=== PATIENT | female | born 1970 | race Caucasian/White ===

== ENCOUNTER 2019-01-11 13:38 | Inpatient (IN) ==
--- NOTE | 2019-01-11 14:20 | PROVIDER DOCUMENTATION ---
HPI-General Adult - General Chief Complaint: Dizziness Stated Complaint: BP HIGH DIZZY Time Seen by Provider: 01/11/19 14:06 Source: patient Allergies/Adverse Reactions: Patient Allergies Allergy/AdvReac Type Severity Reaction Status Date / Time Penicillins AdvReac RASH Verified 01/11/19 13:43 Home Medications: Home Medication List Medication Instructions Recorded Confirmed Last Taken Type NK [No Home Medications] 01/11/19 01/11/19 Unknown History - History of Present Illness -Gen Adult Nature of Presenting Problems: 48yo female presents with CC of weakness, nausea, and dizziness. The onset was this morning. The patient reports she was in her normal state of health yesterday, but this morning noted symptoms of nausea and weakness, and overall not feeling well. She does report a headache, but no abdominal pain of chest pain. The patient has not had a cough or shortness of breath. The patient does report that she did have some elevated blood pressure as well today. The patient does have a recent sick contact in her son, who has active liver failure. The patient believes she may just be having some anxiety about her son. Review of Systems - Adult - REVIEW OF SYSTEMS - ADULT Constitutional: reports: no symptoms reported. denies: fever Eyes: reports: no symptoms reported. denies: eye pain Ears, Nose, Mouth & Throat: denies: throat pain Respiratory: reports: no symptoms reported. denies: cough, shortness of breath Gastrointestinal: reports: nausea, vomiting. denies: abdominal pain, diarrhea Genitourinary: reports: no symptoms reported. denies: dysuria Musculoskeletal: reports: no symptoms reported Integumentary: reports: no symptoms reported Neurological: reports: headache/migraines Psychiatric: reports: anxiety Endocrine: reports: other (diabetes) Hematologic/Lymphatic: reports: no symptoms reported, other (no bleeding) Allergic/Immunologic: reports: no symptoms reported, other (no swelling) Past History - Adult - PAST MEDICAL HISTORY-ADULT Review of Records: reports: Nursing Assessment Review Major Childhood Illnesses: reports: denies history Cardiovascular: reports: denies history Respiratory: reports: denies history Gastrointestinal: reports: denies history Obstetrical/Gynecological: reports: denies history Genitourinary: reports: denies history Musculoskeletal: reports: denies history Neurological: reports: denies history Psychiatric: reports: denies history Endocrine/Immune: reports: denies history, Diabetes Other Conditions: reports: denies history - PRIOR SURGERIES/PROCEDURES Surgical/Procedure History: reports: appendectomy, BTL, , other (uterine ablation) - IMMUNIZATION STATUS Childhood Immunizations: See Nurse Assessment Flu Vaccine: See Nurse Assessment - FAMILY HISTORY Family History: other (CAD) - SOCIAL HISTORY Smoking: denies Substance Use: none/never Alcohol Use Frequency: never Physical Exam-General - PHYSICAL EXAM-ADULT Initial Vital Signs Reviewed: Yes - CONSTITUTIONAL General Appearance: alert, no apparent distress - EYES Eyes: PERRL/EOMI, scleral icterus. negative: conjuctival exudate, photophobia, subconjunctival hemorrhage - HEAD, EARS, NOSE, MOUTH & THROAT HENMT: moist mucous membranes, pharynx normal - RESPIRATORY Respiratory: normal breath sounds - CARDIOVASCULAR Cardiovascular: regular rate, rhythm, no edema - GASTROINTESTINAL (ABDOMEN) Abdominal Exam: soft, tenderness, McBurney's point tenderness. 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 negative: facial droop, focal weakness, motor weakness, sensory deficit - PSYCHIATRIC Psych/Mental Status: normal thought content, normal thought process, anxious, tearful Progress - PLAN OF CARE/RESULTS Progress/Plan/Lab Results: Vital Signs - 8 hr 01/11/19 13:39 Temperature 98.4 F Pulse Rate 97 H Respiratory Rate 18 Blood Pressure 141/88 O2 Sat by Pulse Oximetry 99 Result Diagrams: 01/11/19 14:53 01/11/19 14:53 - REASSESSMENT Reassessment #1 Status: improving (Patient resting comfortably in bed. Lab results concerning for acute hepatitis. Disucussed results with the GI team who recomended admission for supportive care. Tylenol level was checked and was negative. Admission was discussed with the patient who was agreeable to this. Discussed with hospitalist who has accepted the pateint.) Departure - Departure Date of Disposition Decision: 01/11/19 Time of Disposition Decision: 19:09 DIAGNOSIS: Acute hepatitis Disposition: ADMITTED INPATIENT 09 Certified Medical Emergency: Emergent Condition: Fair Referrals and Follow-Ups: None,PCP [Primary Care Provider] - - Critical Care Note This patient required my direct & personal management of CC.: No Attestation - Physician/ VANIA Attestation Patient care was provided by Advanced Practice Provider:: No The physician spent face to face time with patient:: Yes Advanced Practice Provider documentation review:: Supervising physician onsite and consulted in the evaluation and care of this patient. The physician did have a face to face encounter with the patient.
[2019-01-11] MEDS ORDERED: ZOFRAN IV ONE (14:22)
[2019-01-11] MEDS ORDERED: NS 1,000 ML IV ONE (14:22)
[2019-01-11] MEDS ORDERED: TORADOL IV ONE (14:22)
[2019-01-11] MEDS ORDERED: ATARAX PO ONE (14:22)
[2019-01-11 15:15] LABS: BASO# 0.09 X1000 (0.0-0.2); BASO% 1.2 % (0.0-0.8); EOS# 0.17 X1000 (0.0-0.7); EOS% 2.2 % (0.0-10.0); HEMATOCRIT 45.5 % (37.0-47.0); HEMOGLOBIN 14.8 g/dL (12.0-16.0); LYMPH# 2.92 X1000 (1.2-3.4); LYMPH% 37.8 % (20.5-51.1); MCH 26.9 PG (27-31); MCHC 32.5 g/dL (33-37); MCV 82.7 FL (81-99); MONO# 1.05 X1000 (0.11-0.59); MONO% 13.6 % (1.7-9.3); MPV 10.4 FL (7.4-10.4); NEUT% 45.2 % (42.2-75.2); PLT 287 X1000 (130-400); RDW 15.9 % (11.5-14.5); WBC 7.73 X1000 (4.8-10.8)
[2019-01-11 16:03] LABS: AGAP 10; ALB/GLOB RATIO 0.9; ALBUMIN 3.6 g/dL (3.5-5.0); ALKALINE PHOSPHATASE 241 U/L (32-104); AMYLASE 58 U/L (20-200); BUN 7 mg/dL (8-22); CALCIUM 8.7 mg/dL (8.8-10.2); CHLORIDE 96 mmol/L (98-107); COSMO 271; CREATININE 0.7 mg/dL (0.5-0.9); ESTIMATED GFR > 60; GLUCOSE 178 mg/dL (70-104); LIPASE 78 U/L (13-60); POTASSIUM 4.3 mmol/L (3.5-5.1); SODIUM 134 mmol/L (136-145); TCO2 28 mmol/L (25-35); TOTAL BILIRUBIN 5.74 mg/dL (0.20-1.00); TOTAL PROTEIN 7.5 g/dL (6.3-8.3)
[2019-01-11 16:14] LABS: GOT 892 U/L (10-30); GPT 3094 U/L (10-36)
[2019-01-11 16:25] LABS: SED RATE 29 mm/hr (0-20)
[2019-01-11 17:03] LABS: ACETAMINOPHEN < 1.2 ug/mL (10-30); SALICYLATES < 3.00 mg/dL (3-10)
[2019-01-11 18:21] LABS: INR 1.06; PROTIME 13.9 Seconds (11.0-16.0)
[2019-01-11 18:37] LABS: URINE SOURCE CLEAN CATCH
[2019-01-11] MEDS ORDERED: SODIUM CHLORIDE 0.9% INJ SCH (18:47)
[2019-01-11] MEDS ORDERED: ZOFRAN IV PRN (18:47)
[2019-01-11 19:00] LABS: BILIRUBIN URINE MODERATE (NEGATIVE); BLOOD URINE NEGATIVE (NEGATIVE); COLOR YELLOW; GLUCOSE URINE NEGATIVE (NEGATIVE); KETONE URINE NEGATIVE (NEGATIVE); LEUKOCYTES URINE LARGE (NEGATIVE); NITRITE URINE NEGATIVE (NEGATIVE); PROTEIN URINE TRACE mg/dL (NEGATIVE); SP GRAVITY URINE 1.012; TURBIDITY URINE HAZY (CLEAR); UROBILINOGEN URINE NORMAL (NORMAL)
[2019-01-11 19:09] LABS: UR EPITHELIAL CELLS <10 /HPF (<10); URINE BACTERIA 4+ /HPF; URINE RBC <10 /HPF (<10); URINE WBC TNTC /HPF (<10)
[2019-01-11 19:17] LABS: URINE CASTS NONE SEEN; URINE CRYSTALS NONE SEEN; URINE YEAST NONE SEEN
--- NOTE | 2019-01-11 19:21 | HISTORY AND PHYSICAL ---
PRIMARY CARE PHYSICIAN: None. HISTORY OF PRESENT ILLNESS: This is a 48-year-old female with a past medical history of diabetes, who presented to the emergency department complaining of weakness, nausea and vomiting and feeling dizzy since today. She reports that her son is admitted to the hospital for hepatitis. She denies any runny nose, or sneezing or any flu-like symptoms. Here upon ER evaluation, she was found out to have a very elevated liver function test with AST is 892 with 3000 ALT. INR is normal. So she is going to be admitted for abdominal pain, with hepatitis. She is going to be admitted for further evaluation and treatment. PAST MEDICAL HISTORY: 1. Diabetes. 2. Osteoarthritis. PAST SURGICAL HISTORY: 1. Appendectomy. 2. Endometrial ablation when she was 24. ALLERGIES: The patient is allergic to penicillin. SOCIAL HISTORY: The patient denies any smoking cigarettes and drinks alcohol occasionally, but she reports to use IV drugs, in this case, IV methamphetamines and she quit 8 to 9 months ago. REVIEW OF SYSTEMS: Eleven systems were reviewed and all symptoms are related to the H P. PHYSICAL EXAMINATION: VITAL SIGNS: Temperature 98.4 degrees, heart rate 97, respiratory 18, blood pressure 141/88, O2 saturation 99% on room air. GENERAL: This is a 48-year-old female lying in bed, in no acute distress. HEENT: Head is normocephalic, atraumatic. Pupils are equal, round, and reactive to light and accommodation. Very icteric sclera. Conjunctivae is pale. Mucous membranes are dry. NECK: No JVD noted. No carotid bruits. No lymphadenopathy. No thyromegaly. CARDIOVASCULAR: S1, S2 heard. No murmurs, gallops, or rubs. Regular rate and rhythm. RESPIRATORY: Clear bilaterally to auscultation. No work of breathing or using accessory muscles. ABDOMEN: Soft. Mild tender to palpation in the right upper quadrant. No organomegaly noted. No signs of peritoneal irritation. EXTREMITIES: No clubbing, cyanosis, or edema. Peripheral pulses present in both legs. NEUROLOGICAL: The patient is alert and oriented x3. Moves 4 extremities. LABORATORY DATA: CMP that showed total bilirubin 5.74 with AST 892, ALT 3094 with alkaline phosphatase 241. Lipase is 78, salicylate and acetaminophen checked and is normal. ASSESSMENT AND PLAN: 1. Acute hepatitis. The patient is a former IV drug abuser. Although, she said that she quit using IV drugs 8 to 9 months ago. We are going to check a hepatitis profile. In the meantime, we will provide IV fluids and pain medications as needed. We will provide also medication for nausea. Regarding diabetes, we will check hemoglobin A1c. We will start sliding scale insulin, Humalog. Because of her history IV drug abuse, we will check also human immunodeficiency virus as well. 2. For this abdominal pain, we are going to check also CT of abdomen and pelvis with and without contrast and an abdominal ultrasound as well. 3. Further recommendations to follow according to the clinical situation of the patient. cc: Wilmer Gr MD
[2019-01-11 19:24] LABS: HEMOGLOBIN A1C 6.9 % (4.8-6.0)
--- NOTE | 2019-01-11 19:54 | Diag Imaging Result Doc PS360 ---
EXAM: CT ABDOMEN/PELVIS W/WO ANTONIA 01/11/2019 HISTORY: abdominal pain TECHNIQUE: This exam was performed using automated exposure control, adjustment of mA or kV according to patient size, and/or use of iterative reconstruction technique. COMMENT: There is dependent atelectasis in both posterior costophrenic sulci. This is actually improved since 07/10/2017. There is no evidence of hydronephrosis or nephrolithiasis. There is some apparent thickening of the gallbladder wall of the gallbladder is not distended. There are tiny densely calcified gallstones. There is some mild periportal edema. This is worse than on the previous study. There is periportal adenopathy which was not the case on the previous study. The possibility of hepatitis cannot be excluded. The spleen is not enlarged. The adrenal glands are not enlarged and the pancreas is unremarkable in appearance. There is some patchy areas of decreased contrast enhancement present in the left kidney particularly in the lower pole and upper pole consistent with pyelonephritis. This appearance was not present at the time the previous study. Pelvis: There has been previous appendectomy. There is diverticulosis in the distal descending colon and sigmoid without evidence of acute diverticulitis. There is no free fluid. There are no masses. There is gas in the urinary bladder. The regional skeleton appears to be intact. IMPRESSION: 1. Cholelithiasis and pericholecystic fluid/wall edema. The possibility of cholecystitis cannot be excluded. 2. Periportal edema and adenopathy. The possibility of hepatitis cannot be excluded. 3. Urinary tract infection with left pyelonephritis. Electronically signed by Dustin Sultana 01/11/2019 7:51 PM
[2019-01-11] MEDS: PROTONIX IV SCH (21:00)
[2019-01-12] MEDS: HUMALOG SUBQ SCH ×5 (00:21→21:15)
[2019-01-12] MEDS: NS 1,000 ML IV SCH ×4 (03:46→18:58)
[2019-01-12 07:27] LABS: INR 1.14; PROTIME 14.8 Seconds (11.0-16.0)
[2019-01-12 07:37] LABS: BASO# 0.09 X1000 (0.0-0.2); BASO% 1.1 % (0.0-0.8); EOS# 0.15 X1000 (0.0-0.7); EOS% 1.9 % (0.0-10.0); HEMOGLOBIN 13.2 g/dL (12.0-16.0); IMM GRAN# 0.02 X1000 (0.0-0.04); IMM GRAN% 0.3 % (0.0-0.5); LYMPH# 3.69 X1000 (1.2-3.4); LYMPH% 46.4 % (20.5-51.1); MCH 27.2 PG (27-31); MCV 82.3 FL (81-99); MONO# 0.79 X1000 (0.11-0.59); MONO% 9.9 % (1.7-9.3); MPV 10.6 FL (7.4-10.4); NEUT# 3.21 X1000 (1.4-6.5); NEUT% 40.4 % (42.2-75.2); PLT 278 X1000 (130-400); RBC 4.86 XMIL (4.2-5.4); RDW 16.2 % (11.5-14.5); WBC 7.95 X1000 (4.8-10.8)
[2019-01-12 07:44] LABS: BANDS 2 % (0-1); EOS 2 % (1-10); LYMPHS 32 % (21-51); SEGS 58 % (42-75)
[2019-01-12 08:02] LABS: AGAP 12; ALB/GLOB RATIO 0.8; ALBUMIN 2.9 g/dL (3.5-5.0); ALKALINE PHOSPHATASE 205 U/L (32-104); BUN 7 mg/dL (8-22); CALCIUM 8.5 mg/dL (8.8-10.2); CHLORIDE 101 mmol/L (98-107); COSMO 273; CREATININE 0.7 mg/dL (0.5-0.9); ESTIMATED GFR > 60; GLUCOSE 128 mg/dL (70-104); GOT 527 U/L (10-30); SODIUM 137 mmol/L (136-145); TCO2 24 mmol/L (25-35); TOTAL BILIRUBIN 5.69 mg/dL (0.20-1.00); TOTAL PROTEIN 6.6 g/dL (6.3-8.3)
[2019-01-12 08:15] LABS: GPT 2110 U/L (10-36)
[2019-01-12 09:00] LABS: UR AMPHETAMINES QUAL PRESUMPTIVE POSITIVE (NONE DETECT); UR BARBITUATES QUAL NONE DETECTED (NONE DETECT); UR BENZODIAZEPIN QUAL NONE DETECTED (NONE DETECT); UR CANNABINOIDS QUAL NONE DETECTED (NONE DETECT); UR COCAINE QUAL NONE DETECTED (NONE DETECT); UR METHADONE QUAL NONE DETECTED (NONE DETECT); UR OPIATES QUAL NONE DETECTED (NONE DETECT); UR OXYCODONE QUAL NONE DETECTED (NONE DETECT); UR PCP QUAL NONE DETECTED (NONE DETECT)
[2019-01-12] MEDS: TORADOL IV PRN ×2 (10:37→19:57)
[2019-01-12] MEDS: LEVAQUIN 750 MG/D5W 750 MG/150 ML IVPB IV SCH (10:38)
--- NOTE | 2019-01-12 13:35 | PROGRESS NOTE ---
DATE: 01/12/2019 SUBJECTIVE: Patient reports feeling less nauseated, although still abdominal pain, so we are going to change her diet to clear liquids. No other complaints noted. OBJECTIVE: Vital Signs: Temperature 98.2 degrees, heart rate 82, respiratory rate 16, blood pressure 130/80, O2 saturation 100% on room air. General Examination: This is a 48-year-old female lying in bed, in no acute distress. Cardiovascular: S1 and S2 heard. No murmurs, gallops, or rubs. Regular rate and rhythm. Respiratory: Clear bilaterally to auscultation. No work of breathing or using accessory muscles. Abdomen: Soft. Right upper quadrant tenderness to palpation. Bowel sounds present. No organomegaly. No signs of peritoneal irritation. Neurological: Patient alert and oriented x3. Moves 4 extremities. LABORATORY DATA: Reviewed. ASSESSMENT AND PLAN: 1. Acute hepatitis. Final hepatitis profile report is still pending. The patient has history of son who is in the hospital with hepatitis A. Because of her abdominal pain, we have ordered an abdominal ultrasound which basically showed cholelithiasis with pericolic fluid. It showed also urinary tract infection with left pyelonephritis. At this point, patient is going to be started on Levaquin. We have ordered abdominal ultrasound. We will see how this patient does. Urine culture and blood cultures are still pending. 2. Urinary tract infection. We will continue with Levaquin. 3. Further recommendations to follow according to the clinical situation of the patient. cc: Wilmer Gr MD MTDD
--- NOTE | 2019-01-12 14:08 | Diag Imaging Result Doc PS360 ---
US ABDOMEN-COMPLETE - 01/12/2019 INDICATION: acute hepatitis, COMPARISON: CT from 01/11/2019 FINDINGS: The gallbladder is somewhat collapsed. There is some gallbladder wall thickening which was present on the prior CT. There are perhaps a couple of tiny stones in the gallbladder. No shadowing gallstones. No gallbladder distention or surrounding free fluid. Common bile duct measures 2 mm. The pancreas is obscured by bowel gas. The spleen measures 12.3 x 5.6 cm. The liver and both kidneys are normal. Aorta, IVC, and main portal vein are patent. IMPRESSION: 1. Nonspecific collapsed gallbladder with gallbladder wall thickening. 2. Perhaps a couple tiny nonshadowing stones in the gallbladder. Electronically signed by Pedro Luis Denise 01/12/2019 2:05 PM
[2019-01-12 14:23] LABS: HEPATITIS PROFILE ACUTE SEE COMMENTS
[2019-01-12] MEDS: PROTONIX IV SCH ×2 (19:51→20:28)
[2019-01-12 20:56] LABS: HIV ANTIBODY SCREEN SEE COMMENTS
[2019-01-13] MEDS: HUMALOG SUBQ SCH ×4 (06:04→23:39)
[2019-01-13] MEDS: NS 1,000 ML IV SCH ×3 (06:31→23:39)
[2019-01-13 07:09] LABS: INR 1.14; PROTIME 14.8 Seconds (11.0-16.0)
[2019-01-13 07:11] LABS: BASO# 0.06 X1000 (0.0-0.2); BASO% 0.9 % (0.0-0.8); EOS# 0.09 X1000 (0.0-0.7); EOS% 1.4 % (0.0-10.0); HEMATOCRIT 38.9 % (37.0-47.0); HEMOGLOBIN 12.8 g/dL (12.0-16.0); LYMPH# 2.98 X1000 (1.2-3.4); LYMPH% 45.8 % (20.5-51.1); MCH 27.2 PG (27-31); MCHC 32.9 g/dL (33-37); MCV 82.8 FL (81-99); MONO# 0.68 X1000 (0.11-0.59); MONO% 10.4 % (1.7-9.3); MPV 10.1 FL (7.4-10.4); NEUT% 41.5 % (42.2-75.2); PLT 287 X1000 (130-400); RDW 16.6 % (11.5-14.5); WBC 6.51 X1000 (4.8-10.8)
[2019-01-13 07:35] LABS: AGAP 7; ALB/GLOB RATIO 0.8; ALKALINE PHOSPHATASE 206 U/L (32-104); BUN 6 mg/dL (8-22); CALCIUM 8.4 mg/dL (8.8-10.2); CHLORIDE 101 mmol/L (98-107); COSMO 274; CREATININE 0.7 mg/dL (0.5-0.9); ESTIMATED GFR > 60; GLUCOSE 210 mg/dL (70-104); GOT 342 U/L (10-30); POTASSIUM 3.9 mmol/L (3.5-5.1); SODIUM 135 mmol/L (136-145); TCO2 27 mmol/L (25-35); TOTAL BILIRUBIN 6.19 mg/dL (0.20-1.00); TOTAL PROTEIN 6.6 g/dL (6.3-8.3)
[2019-01-13 07:54] LABS: GPT 1429 U/L (10-36)
[2019-01-13 08:06] LABS: LYMPHS 44 % (21-51); MONO 6 % (1-9); SEGS 42 % (42-75)
[2019-01-13] MEDS: LEVAQUIN 750 MG/D5W 750 MG/150 ML IVPB IV SCH ×2 (08:46→09:30)
[2019-01-13] MEDS: TORADOL IV PRN ×2 (11:25→20:51)
--- NOTE | 2019-01-13 14:58 | PROGRESS NOTE ---
DATE: 01/13/2019 SUBJECTIVE: Patient reports feeling definitely less nauseated and he actually wants to try something more consistent than clear liquid diet. Abdominal pain she reported almost gone. OBJECTIVE: Vital Signs: Temperature 97.6 degrees, heart rate 77, respiratory 17, blood pressure 122/74, O2 saturation 99% on room air. General Examination: This is a 48-year-old female lying in bed, in no acute distress. Cardiovascular: S1, S2 heard. No murmurs, gallops, or rubs. Regular rate and rhythm. Respiratory: Clear bilaterally to auscultation. No work of breathing or using accessory muscles. Abdomen: Soft. Mild right upper quadrant tenderness to palpation but definitely better in comparing with yesterday. Bowel sounds present. No organomegaly. No signs of peritoneal irritation. Neurological: Patient alert and oriented x3. Moves 4 extremities. LABORATORY DATA: Reviewed. ASSESSMENT AND PLAN: 1. Acute hepatitis A. That is what the hepatitis profile reports. Clinically, she reports feeling definitely not nauseated so she wants to have her diet advanced. We will do that. There was cholelithiasis showing in the CT scan of the abdomen but the abdominal ultrasound did not show any signs of cholecystitis. White cell count is normal so at this point, we will continue with the same management. 2. Urinary tract infection. We will continue with Levaquin. The urine culture showed gram- negative rods but the final sensitivity is not back yet. We will continue to monitor. 3. Disposition: I think this patient continues to improve with less nausea, eating okay actually. I think we will discharge her tomorrow. cc: Wilmer Gr MD
[2019-01-13] MEDS: PROTONIX IV SCH (20:51)
[2019-01-14] MEDS: HUMALOG SUBQ SCH ×4 (06:31→20:36)
[2019-01-14] MEDS: NS 1,000 ML IV SCH ×3 (06:37→22:00)
[2019-01-14 07:29] LABS: INR 1.12; PROTIME 14.5 Seconds (11.0-16.0)
[2019-01-14 07:37] LABS: BASO# 0.05 X1000 (0.0-0.2); BASO% 0.7 % (0.0-0.8); EOS# 0.16 X1000 (0.0-0.7); EOS% 2.1 % (0.0-10.0); HEMATOCRIT 39.5 % (37.0-47.0); HEMOGLOBIN 13.1 g/dL (12.0-16.0); IMM GRAN# 0.03 X1000 (0.0-0.04); IMM GRAN% 0.4 % (0.0-0.5); LYMPH# 3.07 X1000 (1.2-3.4); LYMPH% 41.1 % (20.5-51.1); MCH 27.3 PG (27-31); MCHC 33.2 g/dL (33-37); MCV 82.5 FL (81-99); MONO# 0.86 X1000 (0.11-0.59); MONO% 11.5 % (1.7-9.3); MPV 10.5 FL (7.4-10.4); NEUT% 44.2 % (42.2-75.2); PLT 292 X1000 (130-400); RBC 4.79 XMIL (4.2-5.4); RDW 17.1 % (11.5-14.5); WBC 7.47 X1000 (4.8-10.8)
[2019-01-14 07:54] LABS: EOS 2 % (1-10); LYMPHS 40 % (21-51); MONO 8 % (1-9); SEGS 42 % (42-75)
[2019-01-14 08:37] LABS: AGAP 11; ALB/GLOB RATIO 0.8; ALBUMIN 2.9 g/dL (3.5-5.0); ALKALINE PHOSPHATASE 237 U/L (32-104); BUN 5 mg/dL (8-22); CALCIUM 9.3 mg/dL (8.8-10.2); CHLORIDE 100 mmol/L (98-107); COSMO 270; CREATININE 0.6 mg/dL (0.5-0.9); ESTIMATED GFR > 60; GLUCOSE 145 mg/dL (70-104); GOT 279 U/L (10-30); GPT 1130 U/L (10-36); POTASSIUM 3.8 mmol/L (3.5-5.1); SODIUM 135 mmol/L (136-145); TCO2 24 mmol/L (25-35); TOTAL BILIRUBIN 6.35 mg/dL (0.20-1.00); TOTAL PROTEIN 6.5 g/dL (6.3-8.3)
--- NOTE | 2019-01-14 09:36 | PROGRESS NOTE ---
DATE: 01/14/2019 SUBJECTIVE: The patient reports feeling fine, not nauseated. She is eating okay. OBJECTIVE: Vital Signs: Temperature 98.5, heart rate 89, respiratory rate 19, blood pressure 130/75, O2 saturation 99% on room air. General: This is a 48-year-old female, lying in bed in no acute distress. Cardiovascular: S1, S2 heard. No murmurs, gallops, or rubs. Regular rate and rhythm. Respiratory: Clear bilaterally to auscultation. No work of breathing or using accessory muscles. Abdomen: Soft, nontender to palpation. Bowel sounds present. No organomegaly. Extremities: No clubbing, cyanosis, or edema. Peripheral pulses present in both legs. Neurological: The patient is alert and oriented x3. Moves all 4 extremities. LABORATORY DATA: Reviewed. Urine culture showed ESBL-positive Escherichia coli. ASSESSMENT AND PLAN: 1. Acute hepatitis A. Clinically, this patient is improving, eating a gastrointestinal soft diet, so will advance her diet to regular. No abdominal pain, so from that standpoint, the patient can be discharged. 2. Extended spectrum [id number]-uxitnfcq Escherichia coli urinary tract infection. That is what we found out on the urine culture, so the patient will be started on ertapenem, and will consult Dr. Damian Hastings. 3. Disposition. At this point, the patient is clinically much better from hepatitis. Liver function tests continue to improve. At this point, I think we will see what Dr. Hastings from Infectious Disease has to say regarding this urinary tract infection. cc: Wilmer Gr MD
[2019-01-14] MEDS: INVANZ 1 GM/NS 1 GM/50 ML IVPB IV SCH (10:34)
--- NOTE | 2019-01-14 11:17 | INFECTIOUS DISEASE CONSULT REP ---
DATE: 01/14/2019 CONCLUSION: Patient has a symptomatic extended spectrum beta lactamase producing E coli urinary tract infection. RECOMMENDATIONS: I agree with placing the patient on ertapenem in a dose of 1 g IV daily. Some of the side effects of the antibiotic, including rash, diarrhea and seizures have been explained to the patient who agrees with treatment. My plan is to treat the patient for 14 days with ertapenem. I am going to put in a consult for the patient to have a PICC placed tomorrow and also a consult for social service to get the patient set up with home IV antibiotics. I discussed with the patient about her PICC the I told her that she can't push, pull or lift anything more than 5 pounds with the arm that has the PICC in it. Also, I told her she cannot work in any hot place that she must be in a cool place so she does not sweat because if she did sweat it could cause the dressing on the PICC to become moist and possibly then become infected. I will have the patient come back to see to my office in approximately 2 weeks and repeat the urine culture a week after stopping the antibiotic. Since the patient's CT scan showed possible cholecystitis as well as pyelonephritis I ordered a HIDA scan for tomorrow. DISCUSSION: The patient approximately 3 days ago prior to coming in the hospital, started having fever and chills and lower abdominal pain. She also noted that her urine was dark. Laboratory studies show a creatinine of 0.6, a GFR of greater than 60. The patient's CBC shows a white count of 7470, hemoglobin 13.1, and platelet count 292,000. The patient's hepatitis profile was positive for hepatitis IgM antibody. The patient's liver function tests showed an ALT of 1130, an alkaline phosphatase of 237. The patient's urinalysis showed bacteria and white cells. Culture of the urine grew an extended spectrum beta lactamase producing E coli patient's urinary test was negative. Drug screen was positive for amphetamines. The patient's HIV antibodies were nonreactive. Blood cultures and swab of the nose for influenza are negative. The patient's urine culture grew an extended spectrum beta lactamase producing E coli. CT scan showed left pyelonephritis and possible cholecystitis. PAST MEDICAL HISTORY/REVIEW OF SYSTEMS: Eyes and ears she can hear and see well. Neck no stiffness. Respiratory no cough or shortness of breath. Cardiac no chest pain or palpitations. GI no nausea, vomiting, or diarrhea. see present illness. Bones, joints, muscles: No swollen joints or muscle aching. Neurologic no seizures. No loss of motor or sensory function. Integument no rash. 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 She has had an endometrial ablation and as mentioned above her urinary test was negative. PREVIOUS HOSPITALIZATIONS AND OPERATIONS: Patient has had 3 labor and deliveries, and an endometrial ablation and an appendectomy. MEDICAL DISEASES: Positive for obesity, diabetes mellitus and hypertension. INFECTIOUS DISEASE HISTORY: Positive for pneumonia and UTI. The patient also has recently been diagnosed with hepatitis. FAMILY HISTORY: Positive for diabetes mellitus, hypertension, myocardial infarction, and stroke. SOCIAL HISTORY[place] . She lives alone. She does not have any pets at home. 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 She does not smoke, drink, or abuse drugs. HOME MEDICATIONS: There are no home medications. As mentioned earlier, the patient said she does not do any in the do any illicit drugs, but her drug screen was positive for amphetamines. PHYSICAL EXAMINATION: Vital Signs: Temperature is 98.5 degrees, pulse 89, respirations 18, blood pressure 130/75. General: Patient is 5 feet 4 inches tall, weighs 178 pounds. Generally: This is an ill-appearing, middle-aged female. She was not jaundice. She was in no acute distress. Head/eyes/ears/nose/throat: She can hear my spoken words and see near objects. There was no scleral icterus. I did not see any white patches in her mouth. Neck: No meningismus. Lungs: Clear to auscultation. Cardiovascular: Regular heart rate. Abdomen: The patient was tender in the lower abdomen area. Neurologic: Patient is alert she can move her extremities. She is able to ambulate. There is no tremor. Integument: No rash. Thank you for the consult. cc: Damian Hastings MD [facility]
[2019-01-14] MEDS: TORADOL IV PRN ×2 (15:54→21:54)
[2019-01-14] MEDS: PROTONIX IV SCH (20:35)
[2019-01-15] MEDS: TORADOL IV PRN (05:25)
[2019-01-15] MEDS: NS 1,000 ML IV SCH (06:27)
[2019-01-15] MEDS: HUMALOG SUBQ SCH ×2 (06:28→11:08)
[2019-01-15 07:53] LABS: INR 1.09; PROTIME 14.2 Seconds (11.0-16.0)
[2019-01-15 07:57] LABS: BASO# 0.07 X1000 (0.0-0.2); EOS# 0.16 X1000 (0.0-0.7); EOS% 2.2 % (0.0-10.0); HEMATOCRIT 38.2 % (37.0-47.0); HEMOGLOBIN 12.7 g/dL (12.0-16.0); LYMPH# 2.65 X1000 (1.2-3.4); LYMPH% 36.7 % (20.5-51.1); MCH 27.1 PG (27-31); MCHC 33.2 g/dL (33-37); MCV 81.4 FL (81-99); MONO# 0.55 X1000 (0.11-0.59); MONO% 7.6 % (1.7-9.3); MPV 9.8 FL (7.4-10.4); NEUT% 52.5 % (42.2-75.2); PLT 302 X1000 (130-400); RBC 4.69 XMIL (4.2-5.4); RDW 17.2 % (11.5-14.5); WBC 7.23 X1000 (4.8-10.8)
[2019-01-15 08:16] LABS: EOS 2 % (1-10); LYMPHS 28 % (21-51); MONO 2 % (1-9); SEGS 68 % (42-75)
[2019-01-15 08:30] LABS: AGAP 10; ALB/GLOB RATIO 0.7; ALBUMIN 2.9 g/dL (3.5-5.0); ALKALINE PHOSPHATASE 277 U/L (32-104); BUN 6 mg/dL (8-22); CALCIUM 8.6 mg/dL (8.8-10.2); CHLORIDE 100 mmol/L (98-107); COSMO 272; CREATININE 0.7 mg/dL (0.5-0.9); ESTIMATED GFR > 60; GLUCOSE 175 mg/dL (70-104); GOT 188 U/L (10-30); POTASSIUM 3.7 mmol/L (3.5-5.1); SODIUM 135 mmol/L (136-145); TCO2 25 mmol/L (25-35); TOTAL BILIRUBIN 6.78 mg/dL (0.20-1.00); TOTAL PROTEIN 6.8 g/dL (6.3-8.3)
[2019-01-15 08:52] LABS: GPT 808 U/L (10-36)
[2019-01-15] MEDS: INVANZ 1 GM/NS 1 GM/50 ML IVPB IV SCH (09:19)
[2019-01-15] MEDS ORDERED: NS 250 ML ONE (10:42)
[2019-01-15 10:56] VITALS: BP 129/76
[2019-01-15] MEDS ORDERED: ZOFRAN PO PRN (12:13)
[2019-01-16] MEDS ORDERED: PROTONIX PO SCH (07:00)
--- NOTE | 2019-01-16 07:39 | DISCHARGE SUMMARY ---
ADMISSION DATE: 01/11/2019 DISCHARGE DATE: 01/15/2019 DISCHARGE DIAGNOSES: 1. Acute hepatitis A. 2. Extended spectrum beta-lactamase Escherichia coli urinary tract infection. 3. Diabetes mellitus type 2. 4. Intravenous drug abuse with methamphetamine. 5. Osteoarthritis. CONSULTATIONS: Dr. Damian Hastings from Infectious Disease. PROCEDURES: 1. Abdominopelvic CT showed cholelithiasis and pericholecystic fluid, wall edema, periportal edema, and adenopathy. 2. Abdominal ultrasound showed nonspecific collapse of the gallbladder with gallbladder wall thickening. HOSPITAL COURSE: This is a 48-year-old female with past medical history of diabetes, who presented to the emergency department complaining of nausea, vomiting, and also she reported that she had a sick contact with her son, also recently diagnosed with hepatitis A. She was admitted to the hospital because her liver function test shows transaminase in the range of thousands. She was admitted to the hospital with IV fluids and pain medication. Two days after she was admitted, she was feeling okay. She started eating okay. Her urine culture shows ESBL Escherichia coli, so we consulted Dr. Hastings from Infectious Disease, who set up 2 weeks of IV antibiotics with ertapenem, and she is going to be seen in the office after she finishes treatment. DISCHARGE PHYSICAL EXAMINATION: Vital Signs: Temperature 97.8 degrees, heart rate 74, respiratory rate 14, blood pressure 131/81, O2 saturation 98% on room air. General: This is a 48- year-old female, lying in bed in no acute distress. Cardiovascular: S1, S2 heard. No murmurs, gallops, or rubs. Regular rate and rhythm. Respiratory: Clear bilaterally to auscultation. No work of breathing or using accessory muscles. Abdomen: Soft, nontender to palpation. Bowel sounds present. No organomegaly. Extremities: No clubbing, cyanosis, or edema. Peripheral pulses present in both legs. Neurological: The patient is alert and oriented x3. Moves all 4 extremities. DISCHARGE DISPOSITION: Home to self-care. LIST OF MEDICATIONS: Ertapenem 1 gram IV every 24 hours for 2 weeks. FOLLOWUP: Follow up with Dr. Damian Hastings in a couple of weeks. TIME SPENT: Time discharging this patient was 35 minutes. cc: Wilmer Gr MD
== END 2019-01-15 16:49 | disposition home or self-care (01) | DRG 442 ==
LOC: ED 13:38 → 3N 20:50
PROVIDERS: ATTEND Internal Medicine